=== PATIENT | female | born 2000 | race Caucasian/White ===

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

== ENCOUNTER 2021-06-25 16:51 | Emergency (ER) | payer OTHER ==
[~2021-06-25] VITALS: Ht 157.5 cm; Wt 118.0 kg
[~2021-06-25 16:51] MED LIST changes: +CLARITIN-D 241 EACH PO; +DELTASONE20 MG PO; +MINIPRESS5 MG PO; +PEPCID40 MG PO; +PROZAC40 MG PO; +ZYRTEC10 MG PO
[2021-06-25] MEDS ORDERED: IBUPROFEN800 MG PO (18:09)
[2021-06-25] MEDS ORDERED: HYDROCODON-ACE1 EA10 PO (21:33)
== END 2021-06-25 21:51 | disposition home or self-care (01) ==
LOC: ED 16:51
DX: R10.12 Left upper quadrant pain (principal); R10.84 Generalized abdominal pain; G47.00 Insomnia, unspecified; G43.909 Migraine, unspecified, not intractable, without status migrainosus; F17.200 Nicotine dependence, unspecified, uncomplicated; Z88.2 Allergy status to sulfonamides; Z88.8 Allergy status to other drugs, medicaments and biological substances; Z91.041 Radiographic dye allergy status; Z91.013 Allergy to seafood; Z79.899 Other long term (current) drug therapy
CPT/HCPCS: 36415; 74176; 80053; 81001; 83690; 84703; 85025; 96374; 96375; 99284-25; J1170; J2405; J7030

== ENCOUNTER 2021-07-09 05:40 | Day surgery (SDC) | payer OTHER ==
[~2021-07-09] VITALS: Ht 157.5 cm; Wt 117.9 kg
[~2021-07-09 05:40] MED LIST changes: +HYDROCODON-ACE1 EA10 PO; +IBUPROFEN800 MG PO
--- NOTE | 2021-07-09 06:52 | NUR ---
0650-PATIENT REQUESTS BOTH BEDRAILS UP. CALL LIGHT WITHIN REACH.
--- NOTE | 2021-07-09 07:48 | NUR ---
07/09/21 0748 Adali Oneil 0740- PT ARRIVES TO PACU NONAROUSABLE TO STIMULI WITH AN OPA IN PLACE. RESP EVEN AND UNLABORED. OXYGEN SAT HIGH 90'S TO 100% ON 6L VIA MASK. JC PAD PLACED BETWEEN PT'S LEGS BY HEAD RESIDENT.
--- NOTE | 2021-07-09 08:10 | NUR ---
PATIENT BACK TO ROOM FROM PACU. RECEIVED REPORT FROM LORNA VELAZQUEZ. PATIENT IS DROWSY. RESP EVEN AND UNLABORED. RATES PAIN 4/10 AND THIS IS TOLERABLE FOR HER. DENIES NAUSEA. JC PAD CLEAN, DRY, AND INTACT. PROVIDED PATIENT WITH WATER AND PUDDING. TIESHA HUGGER TURNED ON. CALL LIGHT WITHIN REACH. PARTNER IN ROOM.
--- NOTE | 2021-07-09 09:13 | NUR ---
PATIENT AWAKE AND TALKING ON THE PHONE. RESP EVEN AND UNLABORED. RATES PAIN 2/10 AND DENIES NAUSEA. SAMLL AMOUNT OF DRAINAGE ON JC PAD. PATIENT IS READY TO GO HOME. 0915-PATIENT UP TO THE RESTROOM AND VOIDED 100ML. 0920-PROVIDED DISCHARGE INSTRUCTIONS TO MONSE AND HER BOYFRIEND. ALL QUESTIONS ANSWERED.
--- NOTE | 2021-07-10 16:41 | OR ---
[facility] [address] [place], [place] [address] Signed DATE OF OPERATION: 07/09/2021 SURGEON: Guera Jefferson MD PREOPERATIVE DIAGNOSIS: Embedded intrauterine device. POSTOPERATIVE DIAGNOSIS: Embedded intrauterine device. PROCEDURES: Dilation of cervix, retrieval of intrauterine device. ANESTHESIA: General, LMA. ESTIMATED BLOOD LOSS: Minimal. DRAINS: None. INDICATIONS AND FINDINGS: The patient is a 21-year-old female, who has been using a Mirena IUD for the last several years and wished this to be removed. When she presented for removal the strings were not visible and the IUD could not be removed. Ultrasound revealed the IUD to be in the uterus, but its position was unusual as it appeared to be folded upon itself at the fundus. At the time of the surgery, exam under anesthesia revealed a normal-size uterus. The cervix was closed and there no IUD strings were visible. DESCRIPTION OF PROCEDURE: The patient was prepped and draped in the dorsal lithotomy position. An open-sided speculum was placed. The anterior lip of the cervix was visualized and grasped with a single-tooth tenaculum. The endocervical canal was then dilated to a #8 dilator. At this point, stone forceps were introduced and after several attempts, the IUD was removed without any difficulty. The tenaculum was removed. There was some bleeding initially from the tenaculum site which responded to pressure. No sutures were required. The patient was then taken to the recovery room in good condition. All sponge and needle counts were correct. She tolerated the procedure well. Electronically Signed By: GUERA JEFFERSON MD 07/10/21 1641 PATIENT NAME: HERMELINDA WALDEN OPERATIVE REPORT DATE OF : 98 REPORT #: [id number] PHYSICIAN: GUERA JEFFERSON MD PCP: EKNNEDY GALICIA REPORT IS CONFIDENTIAL AND NOT TO BE RELEASED WITHOUT AUTHORIZATION [address] [address] Signed Guera Jefferson MD PJW/MODL /[id number] Copies: ~ Electronically Signed By: GUERA JEFFERSON MD 07/10/21 1641 PATIENT NAME: HERMELINDA WALDEN OPERATIVE REPORT DATE OF : 98 REPORT #: [id number] PHYSICIAN: GUERA JEFFERSON MD PCP: KENNEDY GALICIA REPORT IS CONFIDENTIAL AND NOT TO BE RELEASED WITHOUT AUTHORIZATION
== END 2021-07-09 09:25 | disposition home or self-care (01) ==
LOC: DS 05:40
PROVIDERS: ATTEND Obstetrics & Gynecology
PROC: 0UPDXHZ Removal of Contraceptive Device from Uterus and Cervix, External Approach (ICD-10-PCS; principal; 2021-07-09 07:30)
DX: T83.32XA Displacement of intrauterine contraceptive device, initial encounter (principal); J45.20 Mild intermittent asthma, uncomplicated; F17.210 Nicotine dependence, cigarettes, uncomplicated; E66.01 Morbid (severe) obesity due to excess calories; Y76.8 Miscellaneous obstetric and gynecological devices associated with adverse incidents, not elsewhere classified; Z68.41 Body mass index [BMI] 40.0-44.9, adult
CPT/HCPCS: J1100; J2001; J2405; J2704; J2765; J3010; J7121

== ENCOUNTER 2021-09-20 00:12 | Emergency (ER) | payer OTHER ==
[~2021-09-20] VITALS: Ht 160 cm; Wt 120.7 kg
[~2021-09-20 00:12] MED LIST changes: +ABILIFY5 MG PO; +MACROBID 100 M100 MG PO; +PREDNISONE20 MG PO; +SPRINTEC1 EACH PO
[2021-09-20] MEDS ORDERED: LOVENOX120 MG/0.8 INJ (01:59)
--- NOTE | 2021-09-21 19:05 | EKG ---
[facility] [address] [facility] [place], [place] [address] Signed Normal sinus rhythm Normal ECG No previous ECGs available Confirmed by MARYANN MCCLAIN MD ([id number]) on 09/21/2021 7:05:47 PM Electronically Signed By: MARYANN MCCLAIN MD 09/21/21 1905 PATIENT NAME: HERMELINDA WALDEN Electrocardiogram DATE OF : 98 PHYSICIAN: MARYANN MCCLAIN MD REPORT #: [id number] REPORT IS CONFIDENTIAL AND NOT TO BE RELEASED WITHOUT AUTHORIZATION
== END 2021-09-20 02:34 | disposition home or self-care (01) ==
LOC: ED 00:12
DX: O99.891 Other specified diseases and conditions complicating pregnancy (principal); R07.9 Chest pain, unspecified; O99.331 Smoking (tobacco) complicating pregnancy, first trimester; Z3A.01 Less than 8 weeks gestation of pregnancy; Z88.0 Allergy status to penicillin; Z88.2 Allergy status to sulfonamides; Z88.8 Allergy status to other drugs, medicaments and biological substances; Z91.013 Allergy to seafood; Z91.040 Latex allergy status; Z91.048 Other nonmedicinal substance allergy status; Z79.899 Other long term (current) drug therapy
CPT/HCPCS: 36415; 80048; 81001; 84702; 85025; 85379; 93005; 93010; J1650

== ENCOUNTER 2021-11-03 23:05 | Emergency (ER) | payer OTHER ==
[~2021-11-03] VITALS: Ht 160 cm; Wt 120.7 kg
[~2021-11-03 23:05] MED LIST changes: +LOVENOX120 MG/0.8 INJ
[2021-11-05] MEDS ORDERED: MACROBID 100 M100 MG PO (05:35)
== END 2021-11-04 00:38 | disposition home or self-care (01) ==
LOC: ED 23:05
DX: R07.81 Pleurodynia (principal); G43.909 Migraine, unspecified, not intractable, without status migrainosus; G47.00 Insomnia, unspecified; F17.200 Nicotine dependence, unspecified, uncomplicated; Z88.0 Allergy status to penicillin; Z88.2 Allergy status to sulfonamides; Z88.8 Allergy status to other drugs, medicaments and biological substances; Z91.040 Latex allergy status; Z88.1 Allergy status to other antibiotic agents; Z91.013 Allergy to seafood; Z79.899 Other long term (current) drug therapy; Z91.041 Radiographic dye allergy status
CPT/HCPCS: 71045; 99283-25

== ENCOUNTER 2021-11-04 22:03 | Emergency (ER) | payer OTHER ==
[~2021-11-04] VITALS: Ht 160 cm; Wt 114.3 kg
[2021-11-05] MEDS ORDERED: MACROBID 100 M100 MG PO (05:35)
--- NOTE | 2021-11-06 07:02 | EKG ---
[facility] [address] [facility] [place] [address] Signed Sinus tachycardia Nonspecific ST abnormality Abnormal ECG When compared with ECG of 20-SEP-2021 00:17, Vent. rate has increased BY 42 BPM Non-specific change in ST segment in Inferior leads Non-specific change in ST segment in Anterior leads Confirmed by GIOVANY SHEEHAN MD ([id number]) on 11/06/2021 7:02:03 AM Electronically Signed By: GIOVANY SHEEHAN MD 11/06/21 0702 PATIENT NAME: HERMELINDA WALDEN Electrocardiogram DATE OF : 98 PHYSICIAN: GIOVANY SHEEHAN MD REPORT #: [id number] REPORT IS CONFIDENTIAL AND NOT TO BE RELEASED WITHOUT AUTHORIZATION
== END 2021-11-05 06:51 | disposition home or self-care (01) ==
LOC: ED 22:03
DX: O23.42 Unspecified infection of urinary tract in pregnancy, second trimester (principal); N39.0 Urinary tract infection, site not specified; O99.342 Other mental disorders complicating pregnancy, second trimester; F90.9 Attention-deficit hyperactivity disorder, unspecified type; F31.9 Bipolar disorder, unspecified; O99.352 Diseases of the nervous system complicating pregnancy, second trimester; G43.909 Migraine, unspecified, not intractable, without status migrainosus; G47.00 Insomnia, unspecified; Z3A.15 15 weeks gestation of pregnancy; O99.332 Smoking (tobacco) complicating pregnancy, second trimester; F17.200 Nicotine dependence, unspecified, uncomplicated; Z20.822 Contact with and (suspected) exposure to COVID-19; O99.282 Endocrine, nutritional and metabolic diseases complicating pregnancy, second trimester; E87.6 Hypokalemia; Z91.040 Latex allergy status; Z88.0 Allergy status to penicillin; Z88.2 Allergy status to sulfonamides; Z91.09 Other allergy status, other than to drugs and biological substances; Z79.899 Other long term (current) drug therapy
CPT/HCPCS: 36415; 71045; 80048; 80053; 81001; 83605; 85025; 87040; 87088; 87502; 93005; 93010; 96361; 96365; 96366; 96367; 96375; 99285-25; A9270; C9803; J0696; J1200; J2765; J3480; J7030; U0003

== ENCOUNTER 2022-01-21 03:44 | Emergency (ER) | payer OTHER ==
[~2022-01-21] VITALS: Ht 160 cm; Wt 109.9 kg
[~2022-01-21 03:44] MED LIST changes: +CYCLOBENZAPRINE10 MG PO
[2022-01-21] MEDS ORDERED: CEPHALEXIN500 MG PO (08:58)
--- NOTE | 2022-01-23 17:21 | EKG ---
[facility] [address] [facility] [place] [address] Signed Sinus tachycardia Otherwise normal ECG When compared with ECG of 04-NOV-2021 22:24, No significant change was found Confirmed by Tadeo Bryant MD () on 01/23/2022 5:20:49 PM Electronically Signed By: TADEO BRYANT MD 01/23/221720 PATIENT NAME: HERMELINDA WALDEN Electrocardiogram DATE OF : 98 PHYSICIAN: TADEO BRYANT MD REPORT #: [id number] REPORT IS CONFIDENTIAL AND NOT TO BE RELEASED WITHOUT AUTHORIZATION
== END 2022-01-21 09:06 | disposition home or self-care (01) ==
LOC: ED 03:44
DX: O99.891 Other specified diseases and conditions complicating pregnancy (principal); R06.02 Shortness of breath; R00.0 Tachycardia, unspecified; O23.42 Unspecified infection of urinary tract in pregnancy, second trimester; N39.0 Urinary tract infection, site not specified; Z3A.23 23 weeks gestation of pregnancy; G43.909 Migraine, unspecified, not intractable, without status migrainosus; O99.352 Diseases of the nervous system complicating pregnancy, second trimester; O99.332 Smoking (tobacco) complicating pregnancy, second trimester; F17.210 Nicotine dependence, cigarettes, uncomplicated; Z88.0 Allergy status to penicillin; Z88.2 Allergy status to sulfonamides; Z88.8 Allergy status to other drugs, medicaments and biological substances; Z91.040 Latex allergy status; Z91.041 Radiographic dye allergy status
CPT/HCPCS: 36415; 71045; 78582; 80053; 81001; 83735; 84703; 85025; 85379; 87088; 93005; 93010; 93970; 96365; 96367; 96375; 99285-25; A9539; A9540; J0696; J1650; J2405; J3475; J7030

== ENCOUNTER 2023-12-28 16:49 | Emergency (ER) | payer MEDICAID ==
[~2023-12-28] VITALS: Ht 160 cm; Wt 130.0 kg
[~2023-12-28 16:49] MED LIST changes: +CEPHALEXIN500 MG PO
[2023-12-28] MEDS ORDERED: VENTOLIN HFA18 GM (17:10)
[2023-12-28] MEDS ORDERED: DULOXETINE HCL30 MG PO (17:10)
[2023-12-28] MEDS ORDERED: ESCITALOPRAM OX10 MG PO (17:10)
[2023-12-28] MEDS ORDERED: EPIN0.3P (17:10)
[2023-12-28] MEDS ORDERED: ANTIFUNGAL CRE141 GM TOP (17:30)
[2023-12-28 17:45] VITALS: BP 155/82
[2023-12-28] MEDS ORDERED: MICONAZOLE 2% 30 GM TUBE TOP ONE (17:45)
[2023-12-29] MEDS ORDERED: MICONAZOLE 2% 30 GM TUBE TOP ONE ×2 (16:00→17:30)
== END 2023-12-28 17:45 | disposition home or self-care (01) ==
LOC: ED 16:49
DX: B37.2 Candidiasis of skin and nail (principal); F17.200 Nicotine dependence, unspecified, uncomplicated; Z88.0 Allergy status to penicillin; Z88.2 Allergy status to sulfonamides; Z88.8 Allergy status to other drugs, medicaments and biological substances; Z91.040 Latex allergy status; Z91.013 Allergy to seafood; Z79.899 Other long term (current) drug therapy
CPT/HCPCS: 99282

== ENCOUNTER 2024-05-30 03:48 | Emergency (ER) | payer OTHER ==
[~2024-05-30] VITALS: Ht 160 cm; Wt 139.7 kg
[2024-05-30 04:12] LABS: BASOPHILS 0.3 % (0-2); EOSINOPHILS 0.4 % (0-6); HEMOGLOBIN 11.6 g/dL (12.0-18.0); LYMPHOCYTES 16.7 % (24-44); MCH 25.5 (27-36); MCHC 33.1 g/dl (30-36); MONOCYTES 2.9 % (0-12); NEUTROPHILS 79.7 % (39-80); PLATELET COUNT 167 K/uL (140-440); RBC 4.55 M/ul (4.3-5.7); RDW 16.7 (10.5-15.0)
[2024-05-30] MEDS ORDERED: ondansetron HCL 4 MG/2 ML VIAL IV ONE (04:15)
[2024-05-30] MEDS ORDERED: ACETAMINOPHEN 500 MG TAB PO ONE (04:15)
[2024-05-30] MEDS ORDERED: SODIUM CHLORIDE 0.9% 1,000 ML IV SCH (04:15)
[2024-05-30 04:19] LABS: INFLUENZA A AG NEGATIVE (NEGATIVE); INFLUENZA B AG NEGATIVE (NEGATIVE)
[2024-05-30 04:20] LABS: CORONAVIRUS COVID-19 AG NEGATIVE (NEGATIVE)
[2024-05-30 04:22] LABS: LACTIC ACID, BLOOD 1.4 mmol/L (0.4-2.0)
[2024-05-30 04:25] LABS: ALBUMIN 2.8 g/dL (3.4-5.0); ALBUMIN/GLOBULIN RATIO 0.56 (1.1-2.4); ANION GAP 14.5 (7-21); BUN/CREATININE RATIO 9.67 (6.0-28.6); CREATININE, SERUM 0.93 mg/dL (0.55-1.02); POTASSIUM 3.5 mmol/L (3.5-5.1); PROTEIN, TOTAL 7.8 g/dL (6.4-8.2)
[2024-05-30] MEDS ORDERED: KETOROLAC TROMETHAMINE 30 MG/ML VIAL IV ONE (05:00)
[2024-05-30 05:13] LABS: BILIRUBIN, URINE NEGATIVE (negative); BLOOD/HGB, URINE MODERATE (Negative); KETONE, URINE NEGATIVE (Negative); LEUK ESTERASE, URINE MODERATE (negative); NITRITE, URINE POSITIVE (negative); PH, URINE 5.5 (5-7)
[2024-05-30 05:17] LABS: EPITHELIAL CELLS, URINE SQUAMOUS 1+ /lpf (0-1+)
[2024-05-30 05:18] LABS: BACTERIA, URINE 4+ /hpf (negative); CASTS, URINE NONE SEEN \\lpf; COLLECTION TYPE, URINE CLEAN CATCH; CRYSTALS, URINE NONE SEEN (0-1+); REFLEX CULTURE, URINE Yes (No); WHITE BLOOD CELLS, URINE >50 /HPF (0-5)
[2024-05-30] MEDS ORDERED: CEPHALEXIN MONOHYDRATE 500 MG HOME.PACK PO ONE (05:30)
[2024-05-30] MEDS ORDERED: CEFTRIAXONE/SODIUM CHLORIDE 2 GM/100 ML PIGGYBACK IV ONE (05:30)
[2024-05-30 06:06] VITALS: BP 137/67
== END 2024-05-30 06:06 | disposition home or self-care (01) ==
LOC: ED 03:48
PROVIDERS: Emergency Medicine
DX: A41.9 Sepsis, unspecified organism (principal); N39.0 Urinary tract infection, site not specified; F17.200 Nicotine dependence, unspecified, uncomplicated; Z88.0 Allergy status to penicillin; Z88.2 Allergy status to sulfonamides; Z91.040 Latex allergy status; Z88.8 Allergy status to other drugs, medicaments and biological substances; Z79.899 Other long term (current) drug therapy
CPT/HCPCS: 36415; 71045; 80053; 81001; 83605; 84703; 85025; 87088; 93005; 93010; 96365; 96375; 99284-25; A9270; J0696; J1885; J7030

== ENCOUNTER 2024-09-26 18:06 | Emergency (ER) | payer OTHER ==
[~2024-09-26] VITALS: Ht 160 cm; Wt 140.0 kg
[~2024-09-26 18:06] MED LIST changes: +ANTIFUNGAL CRE141 GM TOP; +CEPHALEXIN500 M1 PO; +DULOXETINE HCL30 MG PO; +EPIN0.3P; +ESCITALOPRAM OX10 MG PO; +VENTOLIN HFA18 GM
[2024-09-26 20:06] LABS: BASOPHILS 0.3 % (0.1-1.2); EOSINOPHILS 0.2 % (0.7-5.8); HEMATOCRIT 35.4 % (34.1-44.9); HEMOGLOBIN 11.3 g/dL (11.2-15.7); MCH 25.5 PG (25.6-32.2); MCHC 31.9 g/dL (32.2-35.5); MCV 79.7 fL (79.4-94.8); MONOCYTES 4.6 % (4.7-12.5); NEUTROPHILS 81.6 % (34.0-71.1); PLATELET COUNT 198 K/uL (182-369); RBC 4.44 M/uL (3.93-5.22)
[2024-09-26 20:22] LABS: ALBUMIN 2.9 g/dL (3.4-5.0); ALBUMIN/GLOBULIN RATIO 0.62 (1.1-2.4); ANION GAP 12.5 (7-21); BILIRUBIN, TOTAL 0.4 mg/dL (0.2-1.0); CALCIUM 9.2 mg/dL (8.5-10.1); CREATININE, SERUM 0.75 mg/dL (0.55-1.02); POTASSIUM 3.5 mmol/L (3.5-5.1); PROTEIN, TOTAL 7.6 g/dL (6.4-8.2)
[2024-09-26 20:59] LABS: BILIRUBIN, URINE NEGATIVE (negative); BLOOD/HGB, URINE NEGATIVE (Negative); KETONE, URINE SMALL (Negative); LEUK ESTERASE, URINE SMALL (negative); NITRITE, URINE POSITIVE (negative); PH, URINE 6.5 (5-7)
[2024-09-26 21:04] LABS: BACTERIA, URINE 3+ /hpf (negative); CASTS, URINE NONE SEEN \\lpf; COLLECTION TYPE, URINE CLEAN CATCH; CRYSTALS, URINE NONE SEEN (0-1+); EPITHELIAL CELLS, URINE SQUAMOUS 2+ /lpf (0-1+); RED BLOOD CELLS, URINE 0-1 /hpf (0-5); WHITE BLOOD CELLS, URINE 41-50 /HPF (0-5)
[2024-09-26 21:05] LABS: REFLEX CULTURE, URINE No (No)
[2024-09-26] MEDS ORDERED: CEPHALEXIN MONOHYDRATE 500 MG HOME.PACK PO ONE (21:30)
[2024-09-26] MEDS ORDERED: CEFTRIAXONE SODIUM 2 GM in SODIUM CHLORIDE 0.9% 100 ML IV ONE (21:30)
[2024-09-26] MEDS ORDERED: ondansetron HCL 4 MG/2 ML VIAL IV ONE (21:30)
[2024-09-26] MEDS ORDERED: ONDANSETRON 4 MG HOME.PACK SL ONE (21:45)
[2024-09-26] MEDS ORDERED: ACETAMINOPHEN 500 MG TAB PO ONE (22:45)
[2024-09-26 22:57] VITALS: BP 130/80
== END 2024-09-26 23:00 | disposition home or self-care (01) ==
LOC: ED 18:06
PROVIDERS: Emergency Medicine
DX: O23.41 Unspecified infection of urinary tract in pregnancy, first trimester (principal); N39.0 Urinary tract infection, site not specified; Z3A.12 12 weeks gestation of pregnancy; F17.200 Nicotine dependence, unspecified, uncomplicated; Z88.0 Allergy status to penicillin; Z88.2 Allergy status to sulfonamides; Z91.040 Latex allergy status; Z91.041 Radiographic dye allergy status; Z79.2 Long term (current) use of antibiotics
CPT/HCPCS: 36415; 76705; 76770; 80053; 81001; 85025; 96365; 96375; 99284-25; A9270; J0696; J2405

== ENCOUNTER 2024-10-13 14:42 | Emergency (ER) | payer OTHER ==
[~2024-10-13] VITALS: Ht 160 cm; Wt 129.6 kg
[2024-10-13] MEDS ORDERED: TYLENOL EXTRA500 MG PO (15:00)
[2024-10-13 17:05] VITALS: BP 124/79
== END 2024-10-13 17:05 | disposition home or self-care (01) ==
LOC: ED 14:42
DX: S93.401A Sprain of unspecified ligament of right ankle, initial encounter (principal); F17.200 Nicotine dependence, unspecified, uncomplicated; Z88.0 Allergy status to penicillin; Z88.2 Allergy status to sulfonamides; Z91.040 Latex allergy status; Z91.030 Bee allergy status; W01.0XXA Fall on same level from slipping, tripping and stumbling without subsequent striking against object, initial encounter
CPT/HCPCS: 73610; 99283

== ENCOUNTER 2025-01-24 20:50 | Emergency (ER) | payer OTHER ==
[~2025-01-24] VITALS: Ht 160 cm; Wt 136.5 kg
[~2025-01-24 20:50] MED LIST changes: +TYLENOL EXTRA500 MG PO
[2025-01-24] MEDS ORDERED: ASPIRIN81 MG PO (21:05)
[2025-01-24] MEDS ORDERED: VITAFOL-OB+DHA1 EACH PO (21:06)
[2025-01-24] MEDS ORDERED: ALBUTEROL/IPRATROPIUM 3 ML NEB INH PRN (21:15)
[2025-01-24 21:16] LABS: BASOPHILS 0.3 % (0.1-1.2); EOSINOPHILS 0.6 % (0.7-5.8); LYMPHOCYTES 26.7 % (19.3-51.7); MCH 25.8 PG (25.6-32.2); MCHC 32.0 g/dL (32.2-35.5); MCV 80.6 fL (79.4-94.8); MONOCYTES 4.6 % (4.7-12.5); NEUTROPHILS 67.3 % (34.0-71.1); RBC 3.92 M/uL (3.93-5.22)
[2025-01-24] MEDS ORDERED: FAMOTIDINE 20 MG/ 2 ML VIAL IV ONE (21:30)
[2025-01-24] MEDS ORDERED: EPIPEN AUTO INJECTOR 0.3 MG/0.3 ML ML IM ONE ×2 (21:30→23:00)
[2025-01-24 21:52] LABS: ALT (SGPT) 22 U/L (14-59); AST (SGOT) 21 U/L (15-37); GLOMERULAR FILTRATION RATE,EST 127 mL/min (>60); PROTEIN, TOTAL 7.6 g/dL (6.4-8.2); UREA NITROGEN 7 mg/dL (7-18)
[2025-01-24 22:18] LABS: BLOOD/HGB, URINE NEGATIVE (Negative); KETONE, URINE NEGATIVE (Negative); LEUK ESTERASE, URINE NEGATIVE (negative); NITRITE, URINE NEGATIVE (negative)
[2025-01-24 22:32] LABS: BACTERIA, URINE RARE /hpf (negative); CASTS, URINE NONE SEEN \\lpf; CRYSTALS, URINE NONE SEEN (0-1+); EPITHELIAL CELLS, URINE SQUAMOUS 3+ /lpf (0-1+); REFLEX CULTURE, URINE No (No)
[2025-01-24 23:12] VITALS: BP 134/72
--- NOTE | 2025-01-25 09:25 | EKG ---
[facility] [address] [facility] [place], [place] [address] Signed Normal sinus rhythm with sinus arrhythmia Nonspecific T wave abnormality Abnormal ECG When compared with ECG of 30-MAY-2024 04:16, T wave inversion now evident in Inferior leads Nonspecific T wave abnormality now evident in Anterolateral leads Confirmed by Manfred Baker DO ([id number]) on 01/25/2025 9:25:41 AM Electronically Signed By: MANFRED BAKER DO 01/25/25 0925 PATIENT NAME: HERMELINDA WALDEN Electrocardiogram DATE OF : 98 PHYSICIAN: MANFRED BAKER DO REPORT #: [id number] REPORT IS CONFIDENTIAL AND NOT TO BE RELEASED WITHOUT AUTHORIZATION
== END 2025-01-24 23:14 | disposition home or self-care (01) ==
LOC: ED 20:50
PROVIDERS: Internal Medicine
DX: O9A.213 Injury, poisoning and certain other consequences of external causes complicating pregnancy, third trimester (principal); T78.02XA Anaphylactic reaction due to shellfish (crustaceans), initial encounter; O99.333 Smoking (tobacco) complicating pregnancy, third trimester; F17.200 Nicotine dependence, unspecified, uncomplicated; Z3A.30 30 weeks gestation of pregnancy; Z88.0 Allergy status to penicillin; Z88.2 Allergy status to sulfonamides; Z88.8 Allergy status to other drugs, medicaments and biological substances; Z91.040 Latex allergy status; Z91.013 Allergy to seafood; Z91.09 Other allergy status, other than to drugs and biological substances; Z79.82 Long term (current) use of aspirin; Z79.899 Other long term (current) drug therapy
CPT/HCPCS: 36415; 80053; 81001; 83735; 83880; 84484; 84702; 85025; 93005; 93010; 94640; 96372; 96374; 96375; 99285-25; J0169; J1200; J2919

== ENCOUNTER 2025-03-21 13:52 | Inpatient (IN) | payer OTHER ==
[~2025-03-21] VITALS: Ht 162.6 cm; Wt 134.7 kg
--- OUTSIDE RECORDS SUMMARY | ~2025-03-21 | XMS | Continuity of Care Document ---
Demographics + + + | Address | [address] | | | [place] [address] | + + + | Preferred Language | Unknown | + + + | Marital Status | Domestic partner | + + + | Anabaptism Affiliation | Unknown | + + + | Race | White | + + + | Ethnic Group | Not or | + + + Author + + + | Author | [facility] | + + + | Organization | [facility] | + + + | Address | [address] | | | [place] [address] | + + + | Phone | | + + + Care Team Providers + + + + | Care Web Merchant Name | Role | Phone | + + + + Unavailable | Unavailable | + + + + Unavailable | Unavailable | + + + + Allergies No information. Encounters No information. Functional Status No information. Immunizations No information. Medications + + + + | date | description | facility | + + + + | (no date) | LORATADINE/PSEUDOEPHEDRINE | [facility] | | | | [facility] | + + + + | (no date) | ACETAMINOPHEN | [facility] | | | | [facility] | + + + + | (no date) | PRAZOSIN HCL | [facility] | | | | [facility] | + + + + | (no date) | MELATONIN | [facility] | | | | [facility] | + + + + | (no date) | CITALOPRAM HYDROBROMIDE | [facility] | | | | [facility] | + + + + | (no date) | ASPIRIN | [facility] | | | | [facility] | + + + + | (no date) | ESCITALOPRAM OXALATE | [facility] | | | | [facility] | + + + + | (no date) | ARIPIPRAZOLE | [facility] | | | | [facility] | + + + + | (no date) | ARIPIPRAZOLE | [facility] | | | | [facility] | + + + + | (no date) | GUANFACINE HCL | [facility] | | | | [facility] | + + + + Problems + + + + | date | description | facility | + + + + | 2025-01-24 00:00 | Anaphylaxis | [facility] | | | | [facility] | + + + + Procedures No information. Results/Labs +--------+--------+ +---------+--------+---------+ | test | date | facility | value | unit | notes | +--------+--------+ +---------+--------+---------+ + + | Result panel 1 | + + + + + +---------+ + + | WBC # Bld | 2025-01-24 | | 13.16 | (missing) | (missing) | | Auto | 21::07 | [facility] | | | | + + + +---------+ + + + + | Result panel 2 | + + + + + +--------+ + + | Lymphocytes | 2025-01-24 | | 26.7 | (missing) | (missing) | | NFr Bld | 21:02:07 | [facility] | | | | | Auto | [facility] | | | | + + + +--------+ + + + + | Result panel 3 | + + + + + +-------+ + + | Monocytes | 2025-01-24 | | 4.6 | (missing) | (missing) | | NFr Bld Auto | 21:02:07 | [facility] | | | | + + + +-------+ + + + + | Result panel 4 | + + + + + +-------+ + + | Eosinophil | 2025-01-24 | | 0.6 | (missing) | (missing) | | NFr Bld Auto | 21:02:07 | [facility] | | | | + + + +-------+ + + + + | Result panel 5 | + + + + + +-------+ + + | Basophils | 2025-01-24 | | 0.3 | (missing) | (missing) | | NFr Bld Auto | 21:02:07 | [facility] | | | | + + + +-------+ + + + + | Result panel 6 | + + + + + +--------+ + + | RBC # Bld | 2025-01-24 | | 3.92 | (missing) | (missing) | | Auto | 21:02:07 | [facility] | | | | + + + +--------+ + + + + | Result panel 7 | + + + + + +--------+ + + | Hgb | 2025-01-24 | | 10.1 | (missing) | (missing) | | Bld-nc | 21:02:07 | [facility] | | | | + + + +--------+ + + + + | Result panel 8 | + + + + + +------+---------+ + | Glucose | 2025-01-24 | | 96 | mg/dL | (missing) | | SerPl-mCnc | 21:02:07 | [facility] | | | | + + + +------+---------+ + + + | Result panel 9 | + + + + + +-----+---------+ + | BUN | 2025-01-24 | | 7 | mg/dL | (missing) | | SerPl-mCnc | 21:02:07 | [facility] | | | | + + + +-----+---------+ + + + | Result panel 10 | + + + + + +--------+---------+ + | Creat | 2025-01-24 | | 0.60 | mg/dL | (missing) | | SerPl-mCnc | 21:02:07 | [facility] | | | | | | | - | | | | | | | [facility] | | | | + + + +--------+---------+ + + + | Result panel 11 | + + + + + +-------+ + + | eGFRcr | 2025-01-24 | | 127 | (missing) | (missing) | | SerPlBld | 21:02:07 | [facility] | | | | | CKD-EPI 2020 | [facility] | | | | + + + +-------+ + + + + | Result panel 12 | + + + + + +---------+ + + | BUN/Creat | 2025-01-24 | | 11.66 | (missing) | (missing) | | SerPl | 21:02:07 | [facility] | | | | + + + +---------+ + + + + | Result panel 13 | + + + + + +-------+ + + | Sodium | 2025-01-24 | | 134 | (missing) | (missing) | | SerPl-sCnc | 21:02:07 | [facility] | | | | + + + +-------+ + + + + | Result panel 14 | + + + + + +--------+ + + | Hct VFr.DF | 2025-01-24 | | 31.6 | (missing) | (missing) | | Bld Auto | 21:02:07 | [facility] | | | | + + + +--------+ + + + + | Result panel 15 | + + + + + +-------+ + + | Potassium | 2025-01-24 | | 3.4 | (missing) | (missing) | | SerPl-sCnc | 21:02:07 | [facility] | | | | + + + +-------+ + + + + | Result panel 16 | + + + + + +-------+ + + | Chloride | 2025-01-24 | | 100 | (missing) | (missing) | | SerPl-[facility] | 21:02:07 | [facility] | | | | + + + +-------+ + + + + | Result panel 17 | + + + + + +------+ + + | CO2 | 2025-01-24 | | 23 | (missing) | (missing) | | SerPl-sCnc | 21:02:07 | [facility] | | | | + + + +------+ + + + + | Result panel 18 | + + + + + +--------+ + + | Anion Gap | 2025-01-24 | | 14.4 | (missing) | (missing) | | SerPl | 21:02:07 | [facility] | | | | | Calculated.4 | [facility] | | [facility] | | | | + + + +--------+ + + + + | Result panel 19 | + + + + + +-------+---------+ + | Calcium | 2025-01-24 | | 8.9 | mg/dL | (missing) | | SerPl-mCkendall | 21:02: | [facility] | | | | | | | - | | | | | | | [facility] | | | | + + + +-------+---------+ + + + | Result panel 20 | + + + + + +-------+---------+ + | Magnesium | 2025-01-24 | | 1.7 | mg/dL | (missing) | | Rafat-Sandra | 21:02:07 | [facility] | | | | | | | - | | | | | | | [facility] | | | | + + + +-------+---------+ + + + | Result panel 21 | + + + + + +-------+ + + | Prot | 2025-01-24 | | 7.6 | (missing) | (missing) | | SerPl-mCnc | 21:02:07 | [facility] | | | | + + + +-------+ + + + + | Result panel 22 | + + + + + +-------+ + + | Albumin | 2025-01-24 | | 2.4 | (missing) | (missing) | | SerPl-mCnc | 21:02:07 | [facility] | | | | + + + +-------+ + + + + | Result panel 23 | + + + + + +-------+ + + | Globulin | 2025-01-24 | | 5.2 | (missing) | (missing) | | Ser-mCnc | 21:: | [facility] | | | | + + + +-------+ + + + + | Result panel 24 | + + + + + +--------+ + + | | 2025-01-24 | | 0.46 | (missing) | (missing) | | Albumin/Glob | 21:02:07 | [facility] | | | | | SerPl | [facility] | | | | + + + +--------+ + + + + | Result panel 25 | + + + + + +--------+ + + | RBC Auto | 2025-01-24 | | 80.6 | (missing) | (missing) | | | 21:02:07 | [facility] | | | | + + + +--------+ + + + + | Result panel 26 | + + + + + +-------+---------+ + | Bilirub | 2025-01-24 | | 0.2 | mg/dL | (missing) | | SerPl-mCnc | 21:02:07 | [facility] | | | | + + + +-------+---------+ + + + | Result panel 27 | + + + + + +------+ + + | AST | 2025-01-24 | | 21 | (missing) | (missing) | | SerPl-cCnc | 21:02:07 | [facility] | | | | + + + +------+ + + + + | Result panel 28 | + + + + + +------+ + + | ALT | 2025-01-24 | | 22 | (missing) | (missing) | | SerPl-cCnc | 21::07 | [facility] | | | | + + + +------+ + + + + | Result panel 29 | + + + + + +-------+ + + | ALP | 2025-01-24 | | 157 | (missing) | (missing) | | SerPl-cCnc | 21:02:07 | [facility] | | | | + + + +-------+ + + + + | Result panel 30 | + + + + + +--------+ + + | Troponin I | 2025-01-24 | | <4.0 | (missing) | (missing) | | SerPl | 21::07 | [facility] | | | | | HS-mCnc [facility] | | | | + + + +--------+ + + + + | Result panel 31 | + + + + + +---------+ + + | HCG | 2025-01-24 | | [id number] | (missing) | (missing) | | SerPl-sCnc | 21:02:07 | [facility] | | | | + + + +---------+ + + + + | Result panel 32 | + + + + + +--------+ + + | MCH RBC Qn | 2025-01-24 | | 25.8 | (missing) | (missing) | | Auto | 21:02:07 | [facility] | | | | + + + +--------+ + + + + | Result panel 33 | + + + + + +--------+ + + | MCHC RBC | 2025-01-24 | | 32.0 | (missing) | (missing) | | Auto-EntMCnc | 21:02:07 | [facility] | | | | + + + +--------+ + + + + | Result panel 34 | + + + + + +-------+ + + | Platelet # | 2025-01-24 | | 281 | (missing) | (missing) | | Bld Auto | 21:02:07 | [facility] | | | | + + + +-------+ + + + + | Result panel 35 | + + + + + +--------+ + + | Neutrophils | 2025-01-24 | | 67.3 | (missing) | (missing) | | NFr Bld | 21:02:07 | [facility] | | | | | Auto | [facility] | | | | + + + +--------+ + + + + | Result panel 36 | + + + + + + + + + | Color Ur | 2025-01-24 | | YELLOW | (missing) | (missing) | | Auto | 21:43:07 | [facility] | | | | + + + + + + + + + | Result panel 37 | + + + + + + + + + | Character | 2025-01-24 | | SL CLOUDY | (missing) | (missing) | | Ur | 21:43:07 | [facility] | | | | + + + + + + + + + | Result panel 38 | + + + + + + + + + | Glucose Ur | 2025-01-24 | | NEGATIVE | (missing) | (missing) | | Ql Strip | 21:43:07 | [facility] | | | | + + + + + + + + + | Result panel 39 | + + + + + + + + + | Bilirub Ur | 2025-01-24 | | NEGATIVE | (missing) | (missing) | | Ql Strip | 21:43:07 | [facility] | | | | + + + + + + + + + | Result panel 40 | + + + + + + + + + | Ketones Ur | 2025-01-24 | | NEGATIVE | (missing) | (missing) | | Ql Strip | 21:43:07 | [facility] | | | | + + + + + + + + + | Result panel 41 | + + + + + +---------+ + + | Sp Gr Ur | 2025-01-24 | | 1.020 | (missing) | (missing) | | Strip | 21:43:07 | [facility] | | | | + + + +---------+ + + + + | Result panel 42 | + + + + + + + + + | Hgb Ur Ql | 2025-01-24 | | NEGATIVE | (missing) | (missing) | | Strip | 21:43:07 | [facility] | | | | + + + + + + + + + | Result panel 43 | + + + + + +-------+ + + | pH Ur Strip | 2025-01-24 | | 6.5 | (missing) | (missing) | | | 21:43:07 | [facility] | | | | + + + +-------+ + + + + | Result panel 44 | + + + + + + + + + | Prot Ur | 2025-01-24 | | NEGATIVE | (missing) | (missing) | | Strip-mCnc | 21:43:07 | [facility] | | | | + + + + + + + + + | Result panel 45 | + + + + + + + + + | | 2025-01-24 | | NORMAL | (missing) | (missing) | | Urobilinogen | 21:43:07 | [facility] | | | | | Ur | [facility] Strip-mCnc | | [facility] | | | | + + + + + + + + + | Result panel 46 | + + + + + + + + + | Nitrite Ur | 2025-01-24 | | NEGATIVE | (missing) | (missing) | | Ql Strip | 21:43:07 | [facility] | | | | + + + + + + + + + | Result panel 47 | + + + + + + + + + | Leukocyte | 2025-01-24 | | NEGATIVE | (missing) | (missing) | | esterase Ur | 21:43:07 | [facility] | | | | | Ql Strip | [facility] | | | | + + + + + + + + + | Result panel 48 | + + + + + +-------+ + + | RBC #/area | 2025-01-24 | | 0-1 | (missing) | (missing) | | [facility] | 21:43:07 | [facility] | [facility] | | | | + + + +-------+ + + + + | Result panel 49 | + + + + + +-------+ + + | WBC #/area | 2025-01-24 | | 2-3 | (missing) | (missing) | | UrnS HPF | 21:43:07 | [facility] | | | | + + + +-------+ + + + + | Result panel 50 | + + + + + + + + + | Epi Cells | 2025-01-24 | | SQUAMOUS 3+ | (missing) | (missing) | | #/area UrnS | 21:43:07 | [facility] | | | | | HPF | [facility] | | | | + + + + + + + + + | Result panel 51 | + + + + + + + + + | Crystals | 2025-01-24 | | NONE SEEN | (missing) | (missing) | | [facility] | 21:43:07 | [facility] | | | | + + + + + + + + + | Result panel 52 | + + + + + +--------+ + + | Bacteria | 2025-01-24 | | RARE | (missing) | (missing) | | #/area UrnS | 21:43:07 | [facility] | | | | | HPF | [facility] | | | | + + + +--------+ + + + + | Result panel 53 | + + + + + + + + + | Casts | 2025-01-24 | | NONE SEEN | (missing) | (missing) | | #/area UrnS | 21:43:07 | [facility] | | | | | LPF | [facility] | | | | + + + + + + + + + | Result panel 54 | + + + + + +------+ + + | Bacteria Ur | 2025-01-24 | | No | (missing) | (missing) | | Cult | 21:43:07 | [facility] | | | | + + + +------+ + + + + | Result panel 55 | + + + + + + + + + | Urn Spec | 2025-01-24 | | CLEAN CATCH | (missing) | (missing) | | Collect Meth | 21:43:07 | [facility] | | | | | Ur | [facility] | | | | + + + + + + + Social History +--------+ + + | date | description | facility | +--------+ + + Vital Signs + + + +---------+ | date | measurement | value | units | + + + +---------+ | 2025-01-24 00:00 | BMI | 53.3 | kg/m2 | + + + +---------+ | 2025-01-24 00:00 | BP_diastolic | 72 | mmHg | + + + +---------+ | 2025-01-24 00:00 | BP_systolic | 134 | mmHg | + + + +---------+ | 2025-01-24 00:00 | heart_rate | 95 | /min | + + + +---------+ | 2025-01-24 00:00 | height_metric | 160.02 | cm | + + + +---------+ | 2025-01-24 00:00 | height_standard | 63 | in | + + + +---------+ | 2025-01-24 00:00 | o2_saturation | 96 | % | + + + +---------+ | 2025-01-24 00:00 | respiration_rate | 26 | /min | + + + +---------+ | 2025-01-24 00:00 | | 97.5 | F | | | temperature_standar | | | | | d | | | + + + +---------+ | 2025-01-24 00:00 | weight_metric | 136.5 | kg | + + + +---------+ | 2025-01-24 00:00 | weight_standard | 300.931 | lb | + + + +---------+"
[~2025-03-21 13:52] MED LIST changes: +ASPIRIN81 MG PO; +VITAFOL-OB+DHA1 EACH PO
[2025-03-21 14:14] LABS: PROTEIN, RANDOM URINE 80.0 mg/dL (NOT ESTABLISHED)
[2025-03-21 14:23] LABS: MCH 23.9 PG (25.6-32.2); MCHC 30.2 g/dL (32.2-35.5); MCV 79.2 fL (79.4-94.8); RBC 3.85 M/uL (3.93-5.22)
[2025-03-21] MEDS ORDERED: LACTATED RINGER'S 1,000 ML IV PRN (14:45)
[2025-03-21 14:47] LABS: ALT (SGPT) 24.0 U/L (14-59); AST (SGOT) 19.0 U/L (15-37); GLOMERULAR FILTRATION RATE,EST 127.0 mL/min (>60); LACTATE DEHYDROGENASE 120.0 U/L (81-234); PROTEIN, TOTAL 8.0 g/dL (6.4-8.2); UREA NITROGEN 7.0 mg/dL (7-18)
[2025-03-21] MEDS ORDERED: DEXAMETHASONE SOD PHOS 4 MG/ML VIAL ONE ×2 (15:22→17:23)
[2025-03-21] MEDS ORDERED: BUPIVACAINE 0.75% IN DEXTROSE 2 ML AMP ONE (15:22)
[2025-03-21] MEDS ORDERED: LIDOCAINE HCL 2% 5 ML SDV ONE (15:22)
[2025-03-21] MEDS ORDERED: IBLOOD GLUCOSE TEST STRIP 1 EA TEST VI PRN (15:45)
[2025-03-21] MEDS ORDERED: NALOXONE HCL 0.4 MG SYR IV PRN ×2 (15:45→18:30)
[2025-03-21] MEDS ORDERED: fentaNYL citrate 50 MCG/ML SDV IV PRN (15:45)
[2025-03-21] MEDS ORDERED: MIDAZOLAM HCL 2 MG/2 ML VIAL IV PRN (15:45)
[2025-03-21 15:49] LABS: ABO O; RH POSITIVE
[2025-03-21 15:50] LABS: ANTIBODY SCREEN NEGATIVE
[2025-03-21] MEDS ORDERED: fentaNYL citrate 100 MCG/2 ML VIAL ONE (15:54)
[2025-03-21] MEDS ORDERED: MORPHINE SULFATE 1 MG/ML VIAL ONE (15:54)
[2025-03-21] MEDS ORDERED: OXYTOCIN/0.9 % SODIUM CHLORIDE 500 ML IV ONE (16:03)
[2025-03-21 16:13] LABS: IS CROSSMATCH COMPATIBLE
[2025-03-21] MEDS ORDERED: SODIUM CHLORIDE 0.9% 100 ML IV ONE (16:13)
[2025-03-21] MEDS ORDERED: CEFAZOLIN SODIUM 3 GM VIAL ONE (16:13)
[2025-03-21 16:15] LABS: AMPHETAMINES, URINE NEGATIVE (NEGATIVE); BARBITURATES, URINE NEGATIVE (NEGATIVE); BENZODIAZEPINE, URINE NEGATIVE (NEGATIVE); CANNABINOID, URINE POSITIVE (NEGATIVE); COCAINE, URINE NEGATIVE (NEGATIVE); ECSTASY, URINE NEGATIVE (NEGATIVE); FENTANYL, URINE NEGATIVE (NEGATIVE); METHADONE, URINE NEGATIVE (NEGATIVE); OPIATES, URINE NEGATIVE (NEGATIVE); OXYCODONE, URINE NEGATIVE (NEGATIVE); PHENCYCLIDINE, URINE NEGATIVE (NEGATIVE)
[2025-03-21] MEDS ORDERED: CEFAZOLIN SODIUM 3 GM in SODIUM CHLORIDE 0.9% 100 ML IV ONE (16:15)
[2025-03-21] MEDS ORDERED: PHENYLEPHRINE HCL IN 0.9% NACL 1 MG/10 ML SYR ONE (16:41)
[2025-03-21] MEDS ORDERED: Ropivacaine HCl 0.5% 30 ML VIAL ONE (17:22)
[2025-03-21] MEDS ORDERED: SODIUM CHLORIDE 0.9% 60 ML IV ONE (17:22)
[2025-03-21] MEDS ORDERED: ACETAMINOPHEN 1,000 MG/100 ML VIAL ONE (17:22)
[2025-03-21 17:42] VITALS: BP 122/60
[2025-03-21] MEDS ORDERED: PROMETHAZINE HCL 25 MG SUPP PR PRN (18:00)
[2025-03-21] MEDS ORDERED: METOCLOPRAMIDE HCL 10 MG/2 ML SDV IV PRN (18:00)
[2025-03-21] MEDS ORDERED: PROCHLORPERAZINE EDISYLATE 10 MG/2 ML VIAL IV PRN (18:00)
[2025-03-21] MEDS ORDERED: OXYCODONE HCL 5 MG TAB PO PRN (18:00)
[2025-03-21] MEDS ORDERED: OXYCODONE/APAP 5/325 TAB PO PRN (18:00)
[2025-03-21] MEDS ORDERED: PROMETHAZINE HCL 25 MG TAB PO PRN (18:00)
[2025-03-21] MEDS ORDERED: OXYTOCIN/0.9 % SODIUM CHLORIDE 500 ML IV SCH (18:00)
[2025-03-21] MEDS ORDERED: HYDROCODONE/ACETA 5/325 TAB PO PRN (18:00)
[2025-03-21 18:26] VITALS: BP 96/51
[2025-03-21] MEDS ORDERED: HYDROmorphone HCL 1 MG/ML SYR IV PRN (18:30)
[2025-03-21] MEDS ORDERED: MORPHINE SULFATE 4 MG/ML VIAL IV PRN (18:30)
[2025-03-21] MEDS ORDERED: KETOROLAC TROMETHAMINE 30 MG/ML VIAL IV PRN (18:30)
--- NOTE | 2025-03-21 18:38 | NUR ---
03/21/25 1838 Danish,Kalee Adler 1803: [facility] FOR RECOVERY PHASE. PATIENT AWAKE ON ROOM AIR. 181: FBC RN ASSISTED MOM TO PUT BABY TO BREAST. 183: REPORT GIVEN TO FBC RN.
[2025-03-21] MEDS ORDERED: KETOROLAC TROMETHAMINE 30 MG/ML VIAL IV SCH (20:00)
[2025-03-21] MEDS ORDERED: SIMETHICONE 80 MG CHEW PO SCH (21:00)
[2025-03-21] MEDS ORDERED: SENNOSIDES/DOCUSATE 1 EA TAB PO SCH (21:00)
[2025-03-22] MEDS ORDERED: LACTATED RINGER'S 1,000 ML IV SCH (05:00)
[2025-03-22 05:22] LABS: MCH 23.9 PG (25.6-32.2); MCHC 30.7 g/dL (32.2-35.5); MCV 77.9 fL (79.4-94.8); RBC 3.39 M/uL (3.93-5.22)
[2025-03-22] MEDS ORDERED: ENOXAPARIN SODIUM 40 MG/0.4 ML SYR SUB-Q SCH (06:00)
[2025-03-22] MEDS ORDERED: FERROUS SULFATE 325 MG TAB PO SCH (08:00)
--- NOTE | 2025-03-22 09:13 | PR ---
[facility] [address] [place], [place] [address] Signed PP Progress Notes Datetime Report Generated by CPN: 03/22/2025 09:13 SUBJECTIVE: [id number] Pain: Within Normal Limits Nausea/Vomiting: Denies Flatus: Yes Bowel Movement: No Vital Signs: [id number] Vital Signs: Reviewed; Within Normal Limits Cardiovascular: Normal Respiratory: Normal Abdomen/Uterus: Normal Lochia: Normal Vulva/Perineum: Not Done Breasts: Not Done CVA Tenderness: Normal Extremities: Normal Incision: Normal Progress: Normal Exam Comments: Fundus firm U-2 nontender IMPRESSION/PLAN/PROCEDURES: [id number] Impression: Normal Progression Plan: Continue Present Management Progress Notes: Pt seen and examined. Doing well. Ambulating, voiding, and tolerating full diet. Pain and lochia minimal. . Doing well and desires d/c home today. Reviewed that we would consider d/c home tomorrow and pt agrees. All questions answered. Signing Physician: Kyrie Peng DO Copies: ~ *Electronically Signed* 03/22/25912 KYRIE PENG (SHEA) DO PATIENT NAME: HERMELINDA WALDEN PROGRESS NOTE DATE OF : 89 PHYSICIAN: KYRIE PENG) DO RPT #: [id number] REPORT IS CONFIDENTIAL AND NOT TO BE RELEASED WITHOUT AUTHORIZATION
[2025-03-22] MEDS ORDERED: IBUPROFEN 600 MG TAB PO SCH ×2 (14:18→20:00)
--- NOTE | 2025-03-23 11:00 | PR ---
[facility] [address] [place], [place] [address] Signed PP Progress Notes Datetime Report Generated by CPN: 03/23/2025 11:00 Pain: Within Normal Limits Nausea/Vomiting: Denies Flatus: Yes Bowel Movement: Yes Vital Signs: Reviewed; Within Normal Limits Cardiovascular: Normal Respiratory: Normal Abdomen/Uterus: Normal Lochia: Normal Vulva/Perineum: Not Done Breasts: Not Done CVA Tenderness: Normal Extremities: Normal Incision: Normal Exam Comments: Fundus firm U-2 nontender. Incisions healing well w/ yohan in place Impression: Normal Progression Plan: Discharge Procedures: None Progress Notes: Pt seen and examined. Doing well. Ambulating, voiding, and tolerating full diet. Pain and lochia minimal. . No concerns. BPs well controlled. No lightheadedness / dizziness. Desires d/c home. Nexplanon for pp contraception. No other concerns. Desires d/c home. BP check / staple removal in 2-3 days. All questions answered. Signing Physician: Kyrie Minaya DO Copies: ~ *Electronically Signed* 03/23/25 KYRIE REZA (SHEA) DO PATIENT NAME: HERMELINDA WALDEN PROGRESS NOTE DATE OF : 98 PHYSICIAN: KYRIE MINAYA) DO RPT #: [id number] REPORT IS CONFIDENTIAL AND NOT TO BE RELEASED WITHOUT AUTHORIZATION
== END 2025-03-23 11:06 | disposition home or self-care (01) | DRG 788 ==
LOC: FBCO 13:52 → FBC 14:45 → FBCO 14:45 → FBC 03-23 11:06
PROVIDERS: ADMIT Obstetrics & Gynecology; ATTEND Obstetrics & Gynecology
PROC: 3E03329 Introduction of Other Anti-infective into Peripheral Vein, Percutaneous Approach (ICD-10-PCS; 2025-03-21)
PROC: 10D00Z1 Extraction of Products of Conception, Low, Open Approach (ICD-10-PCS; principal; 2025-03-21 15:30)
DX: O14.04 Mild to moderate pre-eclampsia, complicating childbirth (principal); Z3A.37 37 weeks gestation of pregnancy; Z37.0 Single live birth; O34.211 Maternal care for low transverse scar from previous cesarean delivery; O69.81X0 Labor and delivery complicated by cord around neck, without compression, not applicable or unspecified; O99.02 Anemia complicating childbirth; D64.9 Anemia, unspecified; O99.334 Smoking (tobacco) complicating childbirth; F17.210 Nicotine dependence, cigarettes, uncomplicated; O99.214 Obesity complicating childbirth; E66.01 Morbid (severe) obesity due to excess calories; Z88.0 Allergy status to penicillin; Z88.5 Allergy status to narcotic agent; Z91.040 Latex allergy status; Z88.8 Allergy status to other drugs, medicaments and biological substances
CPT/HCPCS: 01961; 36415; 80053; 80307; 82565; 82570; 83615; 84156; 84550; 85025; 85027; 86850; 86900; 86901; 86922; A9270; J0131; J0165; J0688; J1100; J1200; J1650; J1885; J2003; J2274; J2405; J2795; J3010